=== PATIENT | female | born 1985 | race Asian ===

== ENCOUNTER 2018-08-12 03:26 | Emergency (ER) | payer OTHER ==
[~2018-08-12] VITALS: Ht 154.9 cm; Wt 72.0 kg
[2018-08-12] MEDS ORDERED: FENTANYL PF 100 MCG/2ML IVPush ONE (03:30)
[2018-08-12] MEDS ORDERED: MIDAZOLAM 1 MG/ML, 2ML IVPush ONE (03:30)
[2018-08-12] MEDS ORDERED: SODIUM CHLORIDE FLUSH 10ML SYR IVF ONE (03:30)
[2018-08-12] MEDS ORDERED: MIDAZOLAM 1 MG/ML, 2ML ONE (03:48)
[2018-08-12] MEDS ORDERED: FENTANYL PF 100 MCG/2ML ONE (03:49)
--- NOTE | 2018-08-12 03:56 | NUR ---
PT MEDICATED FOR PAIN AND RIGHT ELBOW RETURNED TO ORIGINAL POSITION. PT TOLERATED IT WELL.
--- NOTE | 2018-08-12 04:21 | NUR ---
pt asleep right arm splinted and in a sling. vss
[2018-08-12 04:22] VITALS: BP 101/62
== END 2018-08-12 06:57 | disposition home or self-care (01) ==
LOC: ED 05:29
DX: S42.301A Unspecified fracture of shaft of humerus, right arm, initial encounter for closed fracture (principal); S53.124A Posterior dislocation of right ulnohumeral joint, initial encounter; S53.024A Posterior dislocation of right radial head, initial encounter; W19.XXXA Unspecified fall, initial encounter; Y93.89 Activity, other specified; Y92.410 Unspecified street and highway as the place of occurrence of the external cause; Y99.8 Other external cause status
CPT/HCPCS: 24600; 73070; 99285; J2250; J3010; 96374